=== PATIENT | male | born 1940 | race Caucasian/White ===

== ENCOUNTER → 2017-12-23 | Outpatient (CLI) | payer OTHER, MEDICARE | LOC: BMCIMAGING 14:11 | PROVIDERS: ATTEND Internal Medicine | DX: J98.4 Other disorders of lung (principal); M19.011 Primary osteoarthritis, right shoulder; M19.012 Primary osteoarthritis, left shoulder ==

== ENCOUNTER → 2019-03-03 | Outpatient (CLI) | payer OTHER, MEDICARE | LOC: BMCIMAGING 13:53 ==